=== PATIENT | male | born 1980 | race Two or more races ===

== ENCOUNTER → 2021-07-24 08:59 | Outpatient (BNVA) | payer OTHER, SELFPAY | PROVIDERS: Visit Provider Physician Assistant Medical | DX: M65.4 Radial styloid tenosynovitis [de Quervain] (principal) | CPT/HCPCS: 99203 ==

== ENCOUNTER → 2021-08-05 09:30 | Outpatient (BNVA) | payer OTHER, SELFPAY | PROVIDERS: Visit Provider Physician Assistant Medical | DX: M65.4 Radial styloid tenosynovitis [de Quervain] (principal) | CPT/HCPCS: 99213 ==

== ENCOUNTER 2021-08-12 13:30 | Outpatient (RCR) | payer OTHER, SELFPAY ==
--- NOTE | 2021-08-01 10:10 | MHC.OT.OEV ---
[address] [phone] F: [phone] Occupational Therapy Evaluation Diagnosis: Left acute De Quervain's tendinitis Date of Onset: 07/12/21 Attending Provider: Zenaida Evans PA-C Prescribed Treatment: Eval and Shayla MD Follow Up Appointment: 08/07/21 History of Current Condition: 41 yo male was repositioning a patient in bed when he felt his wrist pull 'in a funny direction'. He felt numbness in his hand for about 10 minutes. He was seen in urgent care initially, then referred to work connection. He was given a prefab thumb spica for working and is now on light duty. 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, 3x 12 hour shifts Enjoys watching sports Living Situation, Family and/or Social Support: Lives alone Current Level of Function and Occupation Self Care, Employment, Leisure: Working on light duty 3x/wk 8 hours, making beds, assist w/ feeding and passing trays Avoiding boosting and transfers Difficulty moving heavy items at home Sleep: No issues Driving: Uses public transportation Pain Assessment Pain Score: Pain Scale Used: Pain Location and Description: Left dorsal thumb and radiates down to 1st dorsal compartment 4/10 resting 7/10 w/ use and movement Aggravating Factors: Using hand, lifting heavy objects Alleviating Factors: Naproxen, Tylenol, Ice packs Nerve assessment Ulnar Nerve: WFL Median Nerve: WFL Radial Nerve: WFL Comments: Submaximal effort w/ left resistance, but WFL w/ cues Sensory Assessment Comments: Intact light touch Pt reports occasional tingling and numbness over the whole hand Also reporting specific tingling over dorsal radial sensory nerve distribution Edema Assessment Upper Extremity: Left Impaired Lower Extremity: Comments: Mild edema over left radial wrist Dexterity Assessment Comments: Nine Hole Peg R 33 sec L 45 Special Tests Comments: (+) Finklestein's Left AROM(PROM) Strength Cervical Cervical Flexion: Cervical Extension: Cervical Lateral Flexion: Cervical Rotation: Comments: WFL Shoulder Flexion: Extension: Abduction: Internal Rotation: External Rotation: Comments: WFL Flexion: Extension: Abduction: Internal Rotation: External Rotation: Comments: Elbow Flexion: Extension: Pronation: Supination: Comments: WFL Flexion: Extension: Pronation: Supination: Comments: Wrist Flexion: Extension: Ulnar Deviation: Radial Deviation: Comments: WFL Flexion: Extension: Ulnar Deviation: Radial Deviation: Comments: Thumb Thumb CMC Flexion: Thumb MCP Flexion: Thumb IP Flexion: Radial Abduction: Palmar Abduction: Eddy (Kapandji 0-10): R 10 L 7 Comments: Digits Index MCP: PIP: DIP: Long MCP: PIP: DIP: Ring MCP: PIP: DIP: Small MCP: PIP: DIP: Comments: WFL Gross Grasp: R 30lb L 5lb Lateral Pinch: Two-Point Pinch: Three-Jaw Brown: Comments: Patient Education Primary Language: Thai Head Sawyer Automatic Required: No Current Knowledge: Understands information with skills for self-management Teaching Method: Demonstration Handouts Verbal Education Needs Identified on Evaluation: ADL's Disease Information Equipment Use Exercise Pain Safety How did patient/family demonstrate learning? Patient demonstrates Patient verbalizes Barriers to Learning: None Readiness for Learning: Accepting Who was educated? Patient Comments: Plan of Care Assessment: 41 yo right hand dominant male presents to OT almost three weeks s/p traumatic left wrist strain while repositioning a patient at work. He reports moderate pain in left radial wrist and numbness and tingling specifically over dorsal radial sensory nerve distribution. He has a (+) Finklesteins and decreased gross grasp, but overall low strength B/L'ly and poor posture w/ fixed thoracic flexion due to scoliosis. He will benefit from cont'd therapy services for decreasing pain and inflammation, w/ education on activity modification and joint protection w/ ultimate goal of return to work and pain free left wrist. STG Duration: 2 weeks Short Term Goals: Ind w/ orethosis wear Ind w/ joint protection 2/10 resting pain left radial wrist LTG Duration: 4 weeks Retirement Goals: Pain free at rest <3/10 pain w/ moderate forceful activity Pt to demo good joint protection w/ simulated transfers and boosts Left gross grasp >30lb QuickDASH score <25 pts Frequency and Duration: The patient will be seen 3x/wk for 4 weeks Treatment Plan: Therapeutic Exercise Therapeutic Activity Home Exercise Program Splinting Patient Education Desensitization/Sensory Re-ed Edema Control ADL Training Ultrasound Iontophoresis Paraffin Fluidotherapy MHP Cold Packs Joint Mobilization Soft Tissue Mobilization Kinesiotaping Dexamethasone Electronically Signed By: Kayli Hassan OTR/L Reviewed/agree with student documentation: N/A Therapist: Please sign and return to therapist, Thank you for your referral.
--- NOTE | 2021-08-30 13:14 | MHC.OT.DC ---
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 On last visit, he reported relief of pain symptoms, although he continued to have some numbness in radial aspect of hand. At this time, he is requesting to discontinue therapy services, stating in previous sessions he was having trouble with transportation. He has good follow through w/ HEP and jt protection and will benefit from continued protection and progression of activity until cleared for full work duties. Electronically Signed By: Kayli Hassan, TAURUSR/L CHT Please Sign and return to therapist, thank you for your referral.
== END 2021-08-30 13:16 | disposition home or self-care (01) ==
LOC: HO.OT 13:30
PROVIDERS: Visit Provider Physician Assistant Medical
DX: M65.4 Radial styloid tenosynovitis [de Quervain] (principal)
CPT/HCPCS: 97033; 97110; 97140; 97165

== ENCOUNTER 2021-08-30 07:19 | Outpatient (REF) | payer OTHER, SELFPAY ==
--- NOTE | ~2021-08-30 | MR_ITS ---
EXAMINATION: MR HAND WITHOUT CONTRAST, LEFT CLINICAL INFORMATION: Intermittent thumb numbness following a lifting injury. Weakness and decreased sensation. COMPARISON: None TECHNIQUE: Multi-sequence MR imaging of the left hand was obtained without contrast on a high-field strength scanner. FINDINGS: BONE: No abnormal marrow signal. No fracture or dislocation. No evidence of acute osseous injury. Intact articular cartilage. MUSCLES/TENDONS: The visualized flexor and extensor tendons are intact. LIGAMENTS: The collateral ligaments are unremarkable. SOFT TISSUES: No abnormal soft tissue mass or fluid collection. MR/MR hand LT wo con IMPRESSION: Unremarkable examination.
== END 2021-08-30 07:20 | disposition home or self-care (01) ==
LOC: HO.MRI 07:19
PROVIDERS: PCP Internal Medicine; Visit Provider Internal Medicine
DX: R20.0 Anesthesia of skin (principal); R53.1 Weakness; R20.8 Other disturbances of skin sensation; R52 Pain, unspecified
CPT/HCPCS: 73218

== ENCOUNTER → 2021-08-30 11:38 | Outpatient (BNVA) | payer OTHER, SELFPAY | PROVIDERS: PCP Internal Medicine; Visit Provider Physician Assistant | DX: M65.842 Other synovitis and tenosynovitis, left hand (principal) | CPT/HCPCS: 99213 ==